=== PATIENT | female | born 1960 | race Caucasian/White ===

== ENCOUNTER 2020-06-22 08:19 | Emergency (ER) | payer OTHER ==
[~2020-06-22] VITALS: Ht 167.6 cm; Wt 82.6 kg
[~2020-06-22 08:19] MED LIST: HYDR25TA6 PO; LEVO125T PO; LEVO137T2 PO; MECL-85 PO
--- NOTE | 2020-06-22 08:39 | NUR ---
CED, FIDELIA Mitchell at bedside for eval.
--- NOTE | 2020-06-22 08:42 | NUR ---
Pt is 1 week post-op and since sx noticed increasing frequency of urination. "I was holding it though, trying to retrain my bladder." Pt took a 5mg hydrocodone [employer] for her flank pain which was non tender on palpation. Pt ambulatory to bathroom for UA. Connected to BP and O2 monitors. Bedrails upx2, call light in reach. All needs met at this time.
[2020-06-22 08:58] LABS: MICROSCOPIC AUTO
[2020-06-22 09:02] LABS: BASOPHILS % (AUTO) 1 % (0-1); EOSINOPHILS % (AUTO) 2 % (1-7); LYMPHOCYTES % (AUTO) 10 % (22-44); MEAN CORPUSCULAR HEMOGLOBIN 31.6 pg (27.0-34.8); MEAN CORPUSCULAR HGB CONC 34.7 g/dL (32.4-35.8); MEAN PLATELET VOLUME 7.3 fL (7.4-10.4); MONOCYTES % (AUTO) 5 % (2-9); NEUTROPHILS % (AUTO) 83 % (42-75); PLATELET COUNT 444 x10^3/uL (130-400); RED BLOOD COUNT 4.11 x10^6/uL (3.82-5.3); RED CELL DISTRIBUTION WIDTH 12.6 % (9.6-15.2)
[2020-06-22 09:10] LABS: ALANINE AMINOTRANSFERASE 38 U/L (12-78); ALBUMIN 3.6 g/dL (3.4-5.0); ANION GAP 6 mmol/L (5-15); CALCIUM 9.2 mg/dL (8.5-10.1); CHLORIDE 107 mmol/L (98-107); CREATININE 0.85 mg/dL (0.55-1.02)
[2020-06-22 09:11] LABS: MD NO
[2020-06-22 09:12] LABS: ALKALINE PHOSPHATASE 74 U/L (45-117); BILIRUBIN,TOTAL 0.3 mg/dL (0.2-1.0); TOTAL PROTEIN 7.2 g/dL (6.4-8.2)
--- NOTE | 2020-06-22 09:20 | NUR ---
Pt back from imaging.
[2020-06-22] MEDS ORDERED: CEFTRIAXONE PMX 1GM/50ML 50 ML ONE (09:42)
[2020-06-22] MEDS ORDERED: CEFTRIAXONE PMX 1GM/50ML 50 ML IV ONE (10:00)
[2020-06-22] MEDS ORDERED: CEFTRIAXONE 1,000 MG IM ONE (10:00)
[2020-06-22] MEDS ORDERED: SODIUM CHLORIDE FLUSH 10ML SYR IVF ONE (10:00)
[2020-06-22 10:19] VITALS: BP 127/78
== END 2020-06-22 10:29 | disposition home or self-care (01) ==
LOC: ED 08:55
DX: N13.2 Hydronephrosis with renal and ureteral calculous obstruction (principal); R10.31 Right lower quadrant pain; R11.2 Nausea with vomiting, unspecified; I10 Essential (primary) hypertension; R39.15 Urgency of urination; Z79.899 Other long term (current) drug therapy
CPT/HCPCS: 36415; 74176; 80053; 81001; 83690; 85025; 87086; 96365; 99284; J0696